=== PATIENT | female | born 1965 | race Caucasian/White ===

== ENCOUNTER 2016-06-07 15:20 | Inpatient (IN) | payer MEDICARE, OTHER ==
[~2016-06-07] VITALS: Ht 91.4 cm; Wt 33.7 kg
[~2016-06-07 15:20] MED LIST: ACET-2247 PO; ALBU8HFA IH; AZIT500T4 PO; BISA10S PR; FLUC50TA PO; LEVO750P3 IV; METO50 PO; MOM30 PO; OMEP20 PO; PANT40TA25 PO; PERCT PO; ZOLP5 PO; [UNRECOGNIZED DRUG - CODE] IV
[2016-06-07] MEDS ORDERED: FLUC200T PO (16:38)
[2016-06-07 16:44] LABS: EOSINOPHILS % (AUTO) 2.4 % (1.0-6.0); HEMATOCRIT 39.3 % (36-46); HEMOGLOBIN 12.9 g/dL (12.0-16.0); LYMPHOCYTES # (AUTO) 0.9 K/uL (1.0-4.8); LYMPHOCYTES % (AUTO) 13.8 % (22.0-44.0); MEAN CORPUSCULAR HEMOGLOBIN 25.3 pg (26.0-34.0); MEAN CORPUSCULAR HGB CONC 32.7 G/dL (31.0-37.0); MEAN CORPUSCULAR VOLUME 77 fL (80-100); MONOCYTES # (AUTO) 0.2 K/uL (0.1-1.0); MONOCYTES % (AUTO) 2.6 % (2.0-9.0); NEUTROPHILS # (AUTO) 5.2 K/uL (1.8-7.7); PLATELET COUNT (AUTO) 254 K/uL (150-450); RED BLOOD CELL COUNT(AUTO) 5.08 MIL/uL (4.00-5.20); WHITE BLOOD COUNT (AUTO) 6.4 K/uL (4.5-11.0)
[2016-06-07] MEDS ORDERED: CefTRIAXone 1 GM/DEXTROSE 50 ML IV ONE (16:45)
[2016-06-07] MEDS ORDERED: ACETAMINOPHEN 500 MG TABLET PO ONE (16:45)
[2016-06-07 17:01] LABS: LACTIC ACID 1.3 mmol/L (0.4-2.0); RBC MORPHOLOGY COMMENT ABNORMAL RBC MORPH
[2016-06-07 17:03] LABS: NEUTROPHILS % (AUTO) 81.2 % (40.0-70.0)
[2016-06-07 17:14] LABS: B-TYPE NATRIURETIC PEPTIDE 64 pg/mL (0-100)
[2016-06-07 17:19] LABS: ANION GAP 13 mmol/L (8-16); CALCIUM, TOTAL 8.3 mg/dL (8.8-10.5); CARBON DIOXIDE 24 mmol/L (22-29); CHLORIDE 100 mmol/L (98-107); CREATININE 0.59 mg/dL (0.60-1.30); GLOMERULAR FILTR. RATE CALC > 60 mL/min (>60); POTASSIUM 3.9 mmol/L (3.5-5.1); SODIUM SERUM 137 mmol/L (136-145); UREA NITROGEN, BLOOD 8 mg/dL (7-18)
[2016-06-07 17:25] LABS: ALANINE AMINOTRANSFERASE 19 U/L (12-78); ALBUMIN 3.5 g/dL (3.4-5.0); ASPARTATE AMINOTRANSFERASE 22 U/L (15-37); BILIRUBIN,TOTAL 0.4 mg/dL (0.1-1.0)
[2016-06-07] MEDS ORDERED: 0.9% SODIUM CHLORIDE 15 ML NEB SOLUTION NEB ONE (17:44)
[2016-06-07] MEDS ORDERED: ALBUTEROL SULFATE 5 MG/ML 20 ML NEB SOLN [BULK] NEB ONE (17:45)
[2016-06-07] MEDS ORDERED: IPRATROPIUM BROMIDE 0.5 MG/2.5 ML NEB SOLUTION NEB ONE (17:45)
[2016-06-07] MEDS ORDERED: DiphenhydrAMINE HCL 50 MG/ML VIAL IVP ONE (17:45)
[2016-06-07] MEDS ORDERED: MethylPREDNISolone SOD SUCC 125 MG/2 ML VIAL IVP ONE (17:45)
[2016-06-07] MEDS ORDERED: PredniSONE 20 MG TABLET PO ONE (17:45)
[2016-06-07 18:08] LABS: ABG A-A DIFF O2 82.8 mmHg (10-20.0); ABG HCO3 24.7 mmol/L (22.0-26.0); ABG OXYHEMOGLOBIN 96.7 % (94.0-100.0); ABG PCO2 39 mmHg (35-45); ABG PH 7.421 (7.35-7.450); TEMPERATURE, FAHRENHEIT, BG 98.6 FAHREN (96.0-98.6)
[2016-06-07 18:12] LABS: ALLEN TEST, BLOOD GAS Positive
[2016-06-07] MEDS ORDERED: IOVERSOL 350 MG/ML 100 ML VIAL ONE (18:28)
[2016-06-07] MEDS ORDERED: SODIUM CHLORIDE 0.9% 100 ML ONE (18:28)
[2016-06-07] MEDS ORDERED: VORICONAZOLE IV ONE (22:00)
[2016-06-07] MEDS ORDERED: ACETAMINOPHEN 325 MG TABLET PO PRN (22:00)
[2016-06-07] MEDS ORDERED: ONDANSETRON HCL 4 MG/2 ML VIAL IVP PRN (22:00)
[2016-06-07] MEDS ORDERED: DEXTROSE 5% IV ONE (22:00)
[2016-06-07] MEDS ORDERED: WATER IV ONE (22:00)
[2016-06-07] MEDS ORDERED: 0.9% SODIUM CHLORIDE 10 ML SYRINGE IVP PRN (22:00)
[2016-06-07 22:54] VITALS: BP 111/67
[2016-06-08 00:07] VITALS: BP 115/60
[2016-06-08] MEDS ORDERED: WATER IV SCH (02:00)
[2016-06-08] MEDS ORDERED: VORICONAZOLE IV SCH (02:00)
[2016-06-08] MEDS ORDERED: DEXTROSE 5% IV SCH (02:00)
[2016-06-08] MEDS ORDERED: ALBUTEROL SULFATE 2.5 MG/0.5 ML NEB SOLUTION NEB PRN ×2 (02:15)
[2016-06-08] MEDS ORDERED: MAGNESIUM HYDROXIDE SUSPENSION 30 ML UDCUP PO PRN (02:15)
[2016-06-08] MEDS ORDERED: ONDANSETRON HCL 4 MG/2 ML VIAL IVP PRN (02:15)
[2016-06-08] MEDS ORDERED: ACETAMINOPHEN 325 MG TABLET PO PRN (02:15)
[2016-06-08] MEDS ORDERED: IPRATROPIUM BROMIDE 0.5 MG/2.5 ML NEB SOLUTION NEB PRN (02:15)
[2016-06-08] MEDS: MethylPREDNISolone SOD SUCC 40 MG/ML VIAL IVP SCH ×3 (02:26→17:14)
[2016-06-08] MEDS: DOCUSATE SODIUM 100 MG CAPSULE PO SCH ×3 (02:27→22:38)
[2016-06-08] MEDS: METOPROLOL TARTRATE 50 MG TABLET PO SCH ×3 (02:27→22:38)
[2016-06-08] MEDS ORDERED: OxyCODONE HCL/ACETAMINOPHEN 5-325 MG TABLET PO PRN (04:00)
[2016-06-08 05:24] VITALS: BP 100/55
[2016-06-08 08:00] VITALS: BP 93/64
[2016-06-08] MEDS: MAGNESIUM HYDROXIDE SUSPENSION 30 ML UDCUP PO SCH (09:00)
[2016-06-08] MEDS: BISACODYL 10 MG RECTAL RECTAL SUPPOSITORY PR SCH (09:00)
[2016-06-08] MEDS: OMEPRAZOLE 20 MG CAPSULE PO SCH (09:34)
[2016-06-08] MEDS: PANTOPRAZOLE SODIUM 40 MG/VIAL IVP SCH (09:34)
[2016-06-08] MEDS ORDERED: DEXTROSE 5% IV ONE (10:00)
[2016-06-08] MEDS ORDERED: VORICONAZOLE IV ONE (10:00)
[2016-06-08] MEDS ORDERED: WATER IV ONE (10:00)
[2016-06-08 11:31] VITALS: BP 108/68
[2016-06-08 15:56] VITALS: BP 92/55
[2016-06-08 20:28] VITALS: BP 117/71
[2016-06-08] MEDS ORDERED: IOVERSOL 350 MG/ML 100 ML VIAL ONE (21:39)
[2016-06-08] MEDS ORDERED: SODIUM CHLORIDE 0.9% 100 ML ONE (21:39)
[2016-06-08] MEDS ORDERED: BARIUM SULFATE 0.1% SUSPENSION 450 ML BOTTLE ONE (21:40)
[2016-06-08] MEDS: VORICONAZOLE IV SCH (22:38)
[2016-06-08] MEDS: WATER IV SCH (22:38)
[2016-06-08] MEDS: DEXTROSE 5% IV SCH (22:38)
[2016-06-09] VITALS (7 sets, daily range): BP systolic 97–112; BP diastolic 53–69
[2016-06-09] MEDS ORDERED: DiphenhydrAMINE HCL 50 MG/ML VIAL IVP PRN (00:30)
[2016-06-09 07:26] LABS: ANION GAP 7 mmol/L (8-16); CALCIUM, TOTAL 8.9 mg/dL (8.8-10.5); CARBON DIOXIDE 28 mmol/L (22-29); CHLORIDE 103 mmol/L (98-107); CREATININE 0.49 mg/dL (0.60-1.30); EOSINOPHILS % (AUTO) 0 % (1.0-6.0); GLOMERULAR FILTR. RATE CALC > 60 mL/min (>60); HEMATOCRIT 35.3 % (36-46); HEMOGLOBIN 11.6 g/dL (12.0-16.0); LYMPHOCYTES # (AUTO) 0.8 K/uL (1.0-4.8); LYMPHOCYTES % (AUTO) 9.4 % (22.0-44.0); MEAN CORPUSCULAR HEMOGLOBIN 25.7 pg (26.0-34.0); MEAN CORPUSCULAR VOLUME 78 fL (80-100); MONOCYTES # (AUTO) 0.5 K/uL (0.1-1.0); MONOCYTES % (AUTO) 5.7 % (2.0-9.0); NEUTROPHILS # (AUTO) 7.4 K/uL (1.8-7.7); NEUTROPHILS % (AUTO) 84.9 % (40.0-70.0); PLATELET COUNT (AUTO) 198 K/uL (150-450); POTASSIUM 4.1 mmol/L (3.5-5.1); RED BLOOD CELL COUNT(AUTO) 4.53 MIL/uL (4.00-5.20); RED CELL DISTRIBUTION WIDTH 17.8 % (11.5-14.5); SODIUM SERUM 138 mmol/L (136-145); UREA NITROGEN, BLOOD 17 mg/dL (7-18); WHITE BLOOD COUNT (AUTO) 8.7 K/uL (4.5-11.0)
[2016-06-09] MEDS: OMEPRAZOLE 20 MG CAPSULE PO SCH (08:16)
[2016-06-09] MEDS: DOCUSATE SODIUM 100 MG CAPSULE PO SCH ×2 (08:16→21:54)
[2016-06-09] MEDS: METOPROLOL TARTRATE 50 MG TABLET PO SCH ×2 (08:16→21:54)
[2016-06-09] MEDS: PANTOPRAZOLE SODIUM 40 MG/VIAL IVP SCH (08:28)
[2016-06-09] MEDS: BISACODYL 10 MG RECTAL RECTAL SUPPOSITORY PR SCH (08:29)
[2016-06-09] MEDS: MAGNESIUM HYDROXIDE SUSPENSION 30 ML UDCUP PO SCH (08:29)
[2016-06-09] MEDS ORDERED: SODIUM CHLORIDE 0.9% 250 ML IV ONE (10:25)
[2016-06-09] MEDS: DEXTROSE 5% IV SCH ×2 (11:10→22:29)
[2016-06-09] MEDS: WATER IV SCH ×2 (11:10→22:29)
[2016-06-09] MEDS: VORICONAZOLE IV SCH ×2 (11:10→22:29)
[2016-06-10 04:37] VITALS: BP 110/68
[2016-06-10 07:42] VITALS: BP 98/63
[2016-06-10] MEDS: DOCUSATE SODIUM 100 MG CAPSULE PO SCH ×2 (08:11→20:32)
[2016-06-10] MEDS: OMEPRAZOLE 20 MG CAPSULE PO SCH (08:11)
[2016-06-10] MEDS: METOPROLOL TARTRATE 50 MG TABLET PO SCH ×2 (08:13→20:32)
[2016-06-10] MEDS: PANTOPRAZOLE SODIUM 40 MG/VIAL IVP SCH (08:13)
[2016-06-10] MEDS: MAGNESIUM HYDROXIDE SUSPENSION 30 ML UDCUP PO SCH (08:14)
[2016-06-10] MEDS: BISACODYL 10 MG RECTAL RECTAL SUPPOSITORY PR SCH (08:14)
[2016-06-10] MEDS: DEXTROSE 5% IV SCH ×2 (09:41→20:33)
[2016-06-10] MEDS: WATER IV SCH ×2 (09:41→20:33)
[2016-06-10] MEDS: VORICONAZOLE IV SCH ×2 (09:41→20:33)
[2016-06-10] MEDS ORDERED: PHENYLEPHRINE HCL 2.5% 2 ML OPHTHALMIC SOLUTION OU ONE (10:45)
[2016-06-10] MEDS ORDERED: TROPICAMIDE 1% 2 ML OPHTHALMIC SOLUTION OU ONE (10:45)
[2016-06-10] MEDS ORDERED: SODIUM CHLORIDE 3% 15 ML NEB SOLUTION NEB ONE (11:40)
[2016-06-10 11:49] VITALS: BP 107/61
[2016-06-10 12:10] LABS: ASPERGILLUS GALACTOMANNAN-EIA 0.07 Index (0.00-0.49)
[2016-06-10] MEDS ORDERED: 0.9% SODIUM CHLORIDE 5 ML NEB SOLUTION NEB ONE (14:38)
[2016-06-10 15:46] VITALS: BP 98/58
[2016-06-10 19:27] VITALS: BP 119/65
[2016-06-10 23:50] VITALS: BP 104/62
[2016-06-11 04:42] VITALS: BP 105/65
[2016-06-11 07:52] VITALS: BP 95/62
[2016-06-11] MEDS: METOPROLOL TARTRATE 50 MG TABLET PO SCH ×2 (09:00→21:31)
[2016-06-11] MEDS ORDERED: BISACODYL 10 MG RECTAL RECTAL SUPPOSITORY PR PRN (09:00)
[2016-06-11] MEDS: DOCUSATE SODIUM 100 MG CAPSULE PO SCH ×2 (10:32→21:31)
[2016-06-11] MEDS: 0.9% SODIUM CHLORIDE 10 ML SYRINGE IVP PRN (10:33)
[2016-06-11] MEDS: PANTOPRAZOLE SODIUM 40 MG DR TABLET PO SCH (10:33)
[2016-06-11] MEDS: FLUCONAZOLE 200 MG TABLET PO SCH (10:33)
[2016-06-11 11:47] VITALS: BP 100/50
[2016-06-11 17:03] VITALS: BP 126/72
[2016-06-11 19:35] VITALS: BP 125/70
[2016-06-11 23:26] VITALS: BP 116/70
[2016-06-12 03:59] VITALS: BP 103/69
[2016-06-12 08:06] VITALS: BP 104/59
[2016-06-12] MEDS: PANTOPRAZOLE SODIUM 40 MG DR TABLET PO SCH (08:50)
[2016-06-12] MEDS: FLUCONAZOLE 200 MG TABLET PO SCH (08:50)
[2016-06-12] MEDS: METOPROLOL TARTRATE 50 MG TABLET PO SCH ×2 (08:50→20:27)
[2016-06-12] MEDS: DOCUSATE SODIUM 100 MG CAPSULE PO SCH ×2 (08:50→20:27)
[2016-06-12 10:41] VITALS: BP 100/60
[2016-06-12 16:29] VITALS: BP 99/64
[2016-06-12 19:41] VITALS: BP 128/62
[2016-06-12 23:15] VITALS: BP 112/46
[2016-06-13 04:43] VITALS: BP 105/63
[2016-06-13 05:48] LABS: BASOPHILS % (AUTO) 0.3 % (0.0-2.0); EOSINOPHILS % (AUTO) 3.3 % (1.0-6.0); HEMATOCRIT 38.9 % (36-46); HEMOGLOBIN 12.8 g/dL (12.0-16.0); LYMPHOCYTES # (AUTO) 2.4 K/uL (1.0-4.8); LYMPHOCYTES % (AUTO) 22.1 % (22.0-44.0); MEAN CORPUSCULAR HEMOGLOBIN 25.9 pg (26.0-34.0); MEAN CORPUSCULAR HGB CONC 32.9 G/dL (31.0-37.0); MEAN CORPUSCULAR VOLUME 79 fL (80-100); MONOCYTES # (AUTO) 0.9 K/uL (0.1-1.0); MONOCYTES % (AUTO) 8.3 % (2.0-9.0); NEUTROPHILS # (AUTO) 7.1 K/uL (1.8-7.7); PLATELET COUNT (AUTO) 217 K/uL (150-450); RED BLOOD CELL COUNT(AUTO) 4.94 MIL/uL (4.00-5.20); RED CELL DISTRIBUTION WIDTH 17.4 % (11.5-14.5); WHITE BLOOD COUNT (AUTO) 10.8 K/uL (4.5-11.0)
[2016-06-13 06:18] LABS: ALANINE AMINOTRANSFERASE 15 U/L (12-78); ALBUMIN 3.2 g/dL (3.4-5.0); ANION GAP 8 mmol/L (8-16); ASPARTATE AMINOTRANSFERASE 9 U/L (15-37); BILIRUBIN,TOTAL 0.5 mg/dL (0.1-1.0); CALCIUM, TOTAL 8.9 mg/dL (8.8-10.5); CARBON DIOXIDE 26 mmol/L (22-29); CHLORIDE 100 mmol/L (98-107); CREATININE 0.32 mg/dL (0.60-1.30); GLOMERULAR FILTR. RATE CALC > 60 mL/min (>60); POTASSIUM 3.9 mmol/L (3.5-5.1); SODIUM SERUM 134 mmol/L (136-145); TOTAL PROTEIN, SERUM 7.2 g/dL (6.4-8.2); UREA NITROGEN, BLOOD 20 mg/dL (7-18)
[2016-06-13 07:17] LABS: RBC MORPHOLOGY COMMENT ABNORMAL RBC MORPH
[2016-06-13 07:35] LABS: PROCALCITONIN (PCT) 0.06 ng/mL (<0.50)
[2016-06-13] MEDS: METOPROLOL TARTRATE 50 MG TABLET PO SCH ×2 (08:12→20:16)
[2016-06-13] MEDS: DOCUSATE SODIUM 100 MG CAPSULE PO SCH ×2 (08:12→20:11)
[2016-06-13] MEDS: PANTOPRAZOLE SODIUM 40 MG DR TABLET PO SCH (08:12)
[2016-06-13 08:15] VITALS: BP 98/61
[2016-06-13 11:30] VITALS: BP 105/71
[2016-06-13 15:48] VITALS: BP 97/65
[2016-06-13 19:44] VITALS: BP 100/69
[2016-06-13 23:40] VITALS: BP 104/67
[2016-06-14] VITALS (7 sets, daily range): BP systolic 14–124; BP diastolic 66–73
[2016-06-14] MEDS: PANTOPRAZOLE SODIUM 40 MG DR TABLET PO SCH (08:57)
[2016-06-14] MEDS: DOCUSATE SODIUM 100 MG CAPSULE PO SCH ×2 (08:57→20:12)
[2016-06-14] MEDS: METOPROLOL TARTRATE 50 MG TABLET PO SCH ×2 (08:57→20:12)
[2016-06-15 05:31] VITALS: BP 102/66
[2016-06-15 06:18] LABS: BASOPHILS % (AUTO) 0.5 % (0.0-2.0); HEMATOCRIT 40.3 % (36-46); HEMOGLOBIN 13.2 g/dL (12.0-16.0); LYMPHOCYTES # (AUTO) 2.6 K/uL (1.0-4.8); MEAN CORPUSCULAR HEMOGLOBIN 25.6 pg (26.0-34.0); MEAN CORPUSCULAR HGB CONC 32.8 G/dL (31.0-37.0); MEAN CORPUSCULAR VOLUME 78 fL (80-100); MONOCYTES # (AUTO) 0.7 K/uL (0.1-1.0); MONOCYTES % (AUTO) 7.9 % (2.0-9.0); NEUTROPHILS # (AUTO) 5.6 K/uL (1.8-7.7); NEUTROPHILS % (AUTO) 60.6 % (40.0-70.0); PLATELET COUNT (AUTO) 263 K/uL (150-450); RED BLOOD CELL COUNT(AUTO) 5.16 MIL/uL (4.00-5.20); RED CELL DISTRIBUTION WIDTH 17.6 % (11.5-14.5); WHITE BLOOD COUNT (AUTO) 9.2 K/uL (4.5-11.0)
[2016-06-15 06:34] LABS: ANION GAP 10 mmol/L (8-16); CALCIUM, TOTAL 9.1 mg/dL (8.8-10.5); CARBON DIOXIDE 26 mmol/L (22-29); CHLORIDE 97 mmol/L (98-107); CREATININE 0.43 mg/dL (0.60-1.30); GLOMERULAR FILTR. RATE CALC > 60 mL/min (>60); SODIUM SERUM 133 mmol/L (136-145); UREA NITROGEN, BLOOD 24 mg/dL (7-18)
[2016-06-15 07:19] VITALS: BP 114/67
[2016-06-15 09:06] LABS: RBC MORPHOLOGY COMMENT ABNORMAL RBC MORPH
[2016-06-15] MEDS: PANTOPRAZOLE SODIUM 40 MG DR TABLET PO SCH (09:15)
[2016-06-15] MEDS: METOPROLOL TARTRATE 50 MG TABLET PO SCH ×2 (09:15→20:11)
[2016-06-15] MEDS: DOCUSATE SODIUM 100 MG CAPSULE PO SCH ×2 (09:15→20:11)
[2016-06-15 11:36] VITALS: BP 103/64
[2016-06-15] MEDS ORDERED: FLUTICASONE PROPIONATE 50 MCG/SPRAY 16 GM NASAL SPRAY NASAL PRN (12:45)
[2016-06-15 15:43] VITALS: BP 107/78
[2016-06-15 19:50] VITALS: BP 109/68
[2016-06-15 23:29] VITALS: BP 103/63
[2016-06-16 04:41] VITALS: BP 100/62
[2016-06-16 07:16] VITALS: BP 100/65
[2016-06-16] MEDS: DOCUSATE SODIUM 100 MG CAPSULE PO SCH ×2 (08:13→20:58)
[2016-06-16] MEDS: PANTOPRAZOLE SODIUM 40 MG DR TABLET PO SCH (08:13)
[2016-06-16] MEDS: METOPROLOL TARTRATE 50 MG TABLET PO SCH ×2 (08:14→20:58)
[2016-06-16 11:28] VITALS: BP 97/57
[2016-06-16 16:17] VITALS: BP 110/73
[2016-06-16 19:40] VITALS: BP 95/67
[2016-06-17 00:21] VITALS: BP 106/75
[2016-06-17 04:23] VITALS: BP 113/70
[2016-06-17 08:02] VITALS: BP 103/68
[2016-06-17] MEDS: PANTOPRAZOLE SODIUM 40 MG DR TABLET PO SCH (08:19)
[2016-06-17] MEDS: 0.9% SODIUM CHLORIDE 10 ML SYRINGE IVP PRN (08:19)
[2016-06-17] MEDS: METOPROLOL TARTRATE 50 MG TABLET PO SCH (08:19)
[2016-06-17] MEDS: DOCUSATE SODIUM 100 MG CAPSULE PO SCH (08:19)
[2016-06-17 11:08] VITALS: BP 107/58
[2016-06-17] MEDS ORDERED: METO50 PO (13:41)
[2016-06-17] MEDS ORDERED: PANT40TA25 PO (13:42)
[2016-06-17] MEDS ORDERED: ACET-2247 PO (13:43)
[2016-06-17] MEDS ORDERED: FLUT16H NASAL (13:44)
[2016-06-17] MEDS ORDERED: IPRNEB IH (13:45)
[2016-06-17 15:58] VITALS: BP 104/69
== END 2016-06-17 17:57 | DRG 178 ==
LOC: EMS 15:25 → 5S 22:00 → 5N 06-08 19:05 → 6N 06-14 12:41
PROVIDERS: ADMIT Internal Medicine; ATTEND Internal Medicine
DX: J69.0 Pneumonitis due to inhalation of food and vomit (principal); E46 Unspecified protein-calorie malnutrition; Z68.41 Body mass index [BMI] 40.0-44.9, adult; B49 Unspecified mycosis; B44.1 Other pulmonary aspergillosis; M06.9 Rheumatoid arthritis, unspecified; R91.8 Other nonspecific abnormal finding of lung field; I50.9 Heart failure, unspecified; K21.9 Gastro-esophageal reflux disease without esophagitis; I11.0 Hypertensive heart disease with heart failure; K59.00 Constipation, unspecified; Z89.611 Acquired absence of right leg above knee; Z89.612 Acquired absence of left leg above knee; Z74.01 Bed confinement status; Z98.890 Other specified postprocedural states; Z82.49 Family history of ischemic heart disease and other diseases of the circulatory system
CPT/HCPCS: 71275; 74177; 82805; 83605; 84145; 86480; 86635; 87015; 87040; 87070; 87081; 87147; 87205; 87305; 93041; 93306; 94640; 94644; 96365; 96366; 96368; 96375; 99285; C9113; J0696; J1200; J2920; J2930; J3465; J7050; J7060

== ENCOUNTER 2017-01-04 02:25 | Emergency (ER) | payer MEDICARE, OTHER ==
[~2017-01-04] VITALS: Ht 104.1 cm; Wt 39.0 kg
[~2017-01-04 02:25] MED LIST changes: -AZIT500T4 PO; +FLUC200T PO; -FLUC50TA PO; +FLUT16H NASAL; +IPRNEB IH; -LEVO750P3 IV; -ZOLP5 PO; -[UNRECOGNIZED DRUG - CODE] IV
[2017-01-04 06:46] LABS: BASOPHILS % (AUTO) 0.5 % (0.0-2.0); EOSINOPHILS % (AUTO) 5.5 % (1.0-6.0); HEMATOCRIT 40.3 % (36-46); HEMOGLOBIN 13.4 g/dL (12.0-16.0); LYMPHOCYTES # (AUTO) 1.9 K/uL (1.0-4.8); MEAN CORPUSCULAR HEMOGLOBIN 25.8 pg (26.0-34.0); MEAN CORPUSCULAR HGB CONC 33.3 G/dL (31.0-37.0); MEAN CORPUSCULAR VOLUME 77 fL (80-100); MONOCYTES # (AUTO) 0.4 K/uL (0.1-1.0); MONOCYTES % (AUTO) 6.8 % (2.0-9.0); NEUTROPHILS # (AUTO) 3.4 K/uL (1.8-7.7); NEUTROPHILS % (AUTO) 56.2 % (40.0-70.0); PLATELET COUNT (AUTO) 187 K/uL (150-450); RBC MORPHOLOGY COMMENT ABNORMAL RBC MORPH; RED CELL DISTRIBUTION WIDTH 16.8 % (11.5-14.5); WHITE BLOOD COUNT (AUTO) 6.1 K/uL (4.5-11.0)
[2017-01-04 07:06] LABS: ANION GAP 12 mmol/L (8-16); CALCIUM, TOTAL 8.5 mg/dL (8.8-10.5); CARBON DIOXIDE 26 mmol/L (22-29); CHLORIDE 104 mmol/L (98-107); CREATININE 0.41 mg/dL (0.60-1.30); GLOMERULAR FILTR. RATE CALC > 60 mL/min (>60); POTASSIUM 3.3 mmol/L (3.5-5.1); SODIUM SERUM 142 mmol/L (136-145); UREA NITROGEN, BLOOD 10 mg/dL (7-18)
[2017-01-04 07:12] LABS: APPEARANCE,URINE CLOUDY (CLEAR); GLUCOSE, URINE (UA) NEGATIVE (NEGATIVE); KETONES,URINE TRACE mg/dL (NEGATIVE); LEUKOCYTE ESTERASE ,URINE MODERATE (NEGATIVE); OCCULT BLOOD,URINE NEGATIVE (NEGATIVE); PH,URINE 5.5 (5.0-8.0); PROTEIN,URINE TRACE (NEGATIVE)
[2017-01-04 07:12] LABS: ALANINE AMINOTRANSFERASE 8 U/L (12-78); ALBUMIN 3.4 g/dL (3.4-5.0); ASPARTATE AMINOTRANSFERASE 14 U/L (15-37); BILIRUBIN,TOTAL 0.7 mg/dL (0.1-1.0); TOTAL PROTEIN, SERUM 7.6 g/dL (6.4-8.2)
[2017-01-04 07:21] LABS: RBC,URINE 0-2 /HPF (0-2)
[2017-01-04 07:22] LABS: RENAL EPITHELIAL CELLS,URINE Rare /LPF (None Seen); SQUAMOUS EPITHELIAL CELL,UR Few /LPF (None Seen)
[2017-01-04 15:39] VITALS: BP 123/75
== END 2017-01-04 15:50 | disposition home or self-care (01) ==
LOC: EMS 02:27
DX: S50.862A Insect bite (nonvenomous) of left forearm, initial encounter (principal); I11.0 Hypertensive heart disease with heart failure; I50.9 Heart failure, unspecified; K21.9 Gastro-esophageal reflux disease without esophagitis; W57.XXXA Bitten or stung by nonvenomous insect and other nonvenomous arthropods, initial encounter; Y93.89 Activity, other specified; Y92.89 Other specified places as the place of occurrence of the external cause; Y99.8 Other external cause status
CPT/HCPCS: 87086; 93005; 99285

== ENCOUNTER 2017-04-12 15:18 | Emergency (ER) | payer MEDICARE, OTHER ==
[~2017-04-12] VITALS: Ht 106.7 cm; Wt 38.6 kg
[~2017-04-12 15:18] MED LIST changes: -ACET-2247 PO; -ALBU8HFA IH; -BISA10S PR; -FLUC200T PO; -FLUT16H NASAL; -IPRNEB IH; -MOM30 PO; -PANT40TA25 PO; -PERCT PO
[2017-04-12] MEDS ORDERED: OXYC10 PO (15:27)
[2017-04-12] MEDS ORDERED: OxyCODONE HCL/ACETAMINOPHEN 5-325 MG TABLET PO ONE (16:15)
[2017-04-12 16:41] VITALS: BP 139/88
== END 2017-04-12 17:23 | disposition home or self-care (01) ==
LOC: EMS 15:24
DX: M54.2 Cervicalgia (principal); G89.29 Other chronic pain; I11.0 Hypertensive heart disease with heart failure; I50.9 Heart failure, unspecified; K21.9 Gastro-esophageal reflux disease without esophagitis
CPT/HCPCS: 72040; 99284